=== PATIENT | female | born 1980 | race Caucasian/White ===

== ENCOUNTER → 2017-08-08 15:08 | Outpatient (CLI) | payer MEDICAID | END | disposition home or self-care (01) | LOC: D.MRI 15:08 | DX: S83.231A Complex tear of medial meniscus, current injury, right knee, initial encounter (principal); X58.XXXA Exposure to other specified factors, initial encounter; Y93.89 Activity, other specified; Y92.89 Other specified places as the place of occurrence of the external cause ==

== ENCOUNTER 2017-11-08 05:20 | Day surgery (SDC) | payer MEDICAID ==
[2017-11-07 12:09] LABS: HEMATOCRIT 36.8 % (36.0-48.0); HEMOGLOBIN 12.3 g/dL (12-16); MCH 27.7 pg (26.0-34.0); MCHC 33.4 g/dL (31.0-37.0); MCV 82.9 fL (80.0-100.0); MEAN PLATELET VOLUME 9.6 fL (7.4-10.4); RBC 4.44 10x6/uL (4.00-5.40); RDW 13.5 % (11.5-14.5); WBC 9.9 10x3/uL (4.8-10.8)
[2017-11-07 12:19] LABS: ANION GAP 9.9 mmol/L (8-16); CALCIUM 9.8 mg/dL (8.5-10.1); CARBON DIOXIDE 31.7 mmol/L (21.0-32.0); POTASSIUM - SERUM 3.6 mmol/L (3.5-5.1)
[~2017-11-08] VITALS: Ht 160 cm; Wt 96.6 kg
[~2017-11-08 05:20] MED LIST: ADIPEX-P37.5 M1 PO; AMITRIPTYLINE H50 MG PO; BACLOFEN10 MG PO; CHLORTHALIDONE25 MG PO; HYDROCODON-ACE1 EAC7 PO; IBUPROFEN800 MG PO; K-TAB10 MEQ PO; MOVANTIK25 MG PO; PEPCID20 MG PO; PROZAC20 MG PO; SYNTHROID88 MCG PO
[2017-11-08 06:25] VITALS: BP 126/76; Ht 160 cm; Wt 96.6 kg
[2017-11-08] MEDS ORDERED: DILAUDID2 MG PO (09:06)
--- NOTE | 2017-11-08 14:00 | NUR ---
1100 IV DC WITH CATHER TIP INTACT
--- NOTE | 2017-11-12 09:27 | OP ---
PATIENT NAME: ABDON MONTIEL MEDICAL RECORD: [id number] :76 LOCATION:[facility] ADMISSION DATE: SURGEON: LILA HAN MD DATE OF OPERATION: 11/08/2017 PREOPERATIVE DIAGNOSIS: Partial medial meniscus tear of the left knee. POSTOPERATIVE DIAGNOSIS: Partial medial meniscus tear of the left knee. PROCEDURE: Arthroscopic partial medial meniscectomy of the left knee. SURGEON: Lila Han MD ANESTHESIA: General. INTRAOPERATIVE COMPLICATIONS: None. SUMMARY OF PATHOLOGIC FINDINGS: The patient had a complex tear of the posterior horn of the medial meniscus consistent with preoperative findings SUMMARY IN DETAIL: After obtaining the appropriate preoperative orthopedic surgery consent as well as anesthetic consultation, evaluation and clearance, the patient was brought to the operating room and placed on operating table in supine position. After general laryngeal mask was administered, tourniquet was placed about the proximal aspect of the left lower extremity. Left lower extremity was then prepped and draped in a routine sterile fashion. The leg was elevated and exsanguinated, tourniquet inflated to 350 mmHg. Routine inferolateral portal was established followed by superomedial portal and inferomedial portal. Diagnostic arthroscopy did reveal a complex tear of the posterior horn of medial meniscus. Combination of 3.5 full radius resector in conjunction with an arthroscopic meniscotome was utilized to debride the meniscus back to stable meniscal elements. Having completed this, the knee was insufflated with 30 cc of 0.25% Marcaine with epinephrine and 40 mg Depo-Medrol. Arthroscopy portals were closed in routine interrupted fashion using 4-0 Prolene. Sterile dressings were applied. The patient was awakened, taken to recovery in stable condition. All final needle and sponge counts were correct. TRANSINT:[id number] Voice Confirmation ID: [id number] DOCUMENT ID: [id number] LILA HAN MD at 0927 CC: [id number] DICTATION DATE: 11/08/17 1413 [employer] ATTENDANT: 11/08/17 1457 [facility] [place] [facility] [address] [place] [address]
--- NOTE | 2017-11-12 09:27 | OP ---
PATIENT NAME: ABDON MONTIEL MEDICAL RECORD: [id number] :76 LOCATION:[facility] ADMISSION DATE: SURGEON: LILA HAN MD DATE OF OPERATION: 11/08/2017 PREOPERATIVE DIAGNOSIS: Medial meniscus tear of the right knee. POSTOPERATIVE DIAGNOSIS: Medial meniscus tear of the right knee. PROCEDURE: Arthroscopic partial medial meniscectomy. SURGEON: Lila Han MD ANESTHESIA: General. INTRAOPERATIVE COMPLICATIONS: None. SUMMARY OF PATHOLOGIC FINDINGS: The patient had a complex tear of the posterior horn of the medial meniscus consistent with MRI. OPERATIVE SUMMARY IN DETAIL: After obtaining the appropriate preoperative orthopedic surgery consent as well as anesthetic consultation, evaluation and clearance, the patient was brought to the operating room and placed on the operating table in supine position. After adequate general laryngeal mask airway was administered, tourniquet was placed about the proximal aspect of the right lower extremity. Right lower extremity was then prepped and draped in routine sterile fashion. The leg was elevated and exsanguinated. The tourniquet was inflated to 350 mmHg. Routine inferolateral portal was established, followed by superomedial portal and the inferomedial portal. Diagnostic arthroscopy did reveal the patient had the above findings. Combination of a full-radius resector as well as meniscotome were used to debride the meniscus back to stable meniscal elements and to make a clean smoothen rim. Having completed this, the knee was insufflated with 30 cc of 0.25% Marcaine with epinephrine and 40 mg of Depo-Medrol. Arthroscopy portals were closed in interrupted fashion using 4-0 Prolene. Sterile dressings were applied. The patient was awakened and taken to the recovery room in stable condition. All final needle and sponge counts were correct. TRANSINT:[id number] Voice Confirmation ID: [id number] DOCUMENT ID: [id number] LILA HAN MD at 0927 CC: [id number] DICTATION DATE: 11/08/17902 PROBATION SUPERVISOR: 11/08/17 1427 [facility] 11/08/17 [place] [id number] [place] [address]
== END 2017-11-08 11:30 | disposition home or self-care (01) ==
LOC: D.OPS 05:20 → D.PAN 08:30 → D.OPS 08:30
PROVIDERS: Anesthesiology
DX: S83.231A Complex tear of medial meniscus, current injury, right knee, initial encounter (principal); Z01.812 Encounter for preprocedural laboratory examination

== ENCOUNTER → 2018-03-06 10:35 | Outpatient (CLI) | payer MEDICAID ==
[2017-11-08 06:25] VITALS: BMI 37.8
[~2018-03-06 10:35] MED LIST changes: +CYMBALTA20 MG PO; +DILAUDID2 MG PO; +RITALIN SR20 MG PO; +ROBAXIN-750750 MG PO; +VISTARIL25 MG PO
== END | disposition home or self-care (01) ==
LOC: D.MRI 10:35
DX: M25.561 Pain in right knee (principal)

== ENCOUNTER 2018-04-18 07:20 | Day surgery (SDC) | payer MEDICAID ==
[2018-04-17 09:28] LABS: HEMATOCRIT 40.1 % (36.0-48.0); HEMOGLOBIN 13.5 g/dL (12-16); MCH 28.1 pg (26.0-34.0); MCHC 33.7 g/dL (31.0-37.0); MCV 83.4 fL (80.0-100.0); MEAN PLATELET VOLUME 9.6 fL (7.4-10.4); RBC 4.81 10x6/uL (4.00-5.40); RDW 13.6 % (11.5-14.5); WBC 8.2 10x3/uL (4.8-10.8)
[2018-04-17 10:10] LABS: CALCIUM 9.6 mg/dL (8.5-10.1); CARBON DIOXIDE 31.6 mmol/L (21.0-32.0); CREATININE - SERUM 0.9 mg/dL (0.6-1.3); POTASSIUM - SERUM 3.6 mmol/L (3.5-5.1)
[~2018-04-18] VITALS: Ht 160 cm; Wt 86.2 kg
--- NOTE | ~2018-04-18 | OP ---
PATIENT NAME: ABDON MONTIEL MEDICAL RECORD: [id number] :76 LOCATION:D.[facility] ADMISSION DATE: SURGEON: LILA HAN MD DATE OF OPERATION: 04/18/2018 PREOPERATIVE DIAGNOSES: 1. Medial meniscus tear of the right knee. 2. Subcutaneous nodules of the right lower leg times 2. POSTOPERATIVE DIAGNOSES: 1. Medial meniscus tear of the right knee. 2. Subcutaneous nodules of the right lower leg times 2. PROCEDURE: 1. Arthroscopic partial medial meniscectomy of the right knee. 2. Removal of subcutaneous nodules time 2. SURGEON: Lila Han MD ANESTHESIA: General. INTRAOPERATIVE COMPLICATIONS: None. SUMMARY OF PATHOLOGIC FINDINGS: The patient had what appeared to be small lipomas rather than vascular clots. These were sent to pathology. The patient had a recurrent complex tear of the posterior horn of the medial meniscus consistent with the preoperative MRI and physical examination. 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 One area of the chondromalacia was grade III at max, otherwise it was a mixture of grade II and I combination across the entire strip. This was also treated with gentle chondroplasty of the medial femoral condyle. The lateral compartment was pristine. Very small osteophytes had developed on the inferior pole of the patella. OPERATIVE SUMMARY IN DETAIL: After obtaining the appropriate preoperative orthopedic surgery consent as well as anesthetic consultation, evaluation and clearance, the patient was brought to the operating room and placed on the operating table in supine position. After general laryngeal mask airway was administered, tourniquet was placed about the proximal aspect of the right lower extremity. Right lower extremity was then prepped and draped in routine sterile fashion. The leg was elevated and exsanguinated and the tourniquet was inflated to 350 mmHg. The preoperatively marked areas of the subcutaneous nodule were identified. The nodule was palpated. A small incision was made and a very small pea-sized lipoma was found. The second spot approximately 10 cm distal to this was also incised and again a small lipoma was found. Attention was then turned to the knee arthroscopy. Routine anterior lateral portal was created followed by superomedial portal and anteromedial portal. Diagnostic arthroscopy did reveal the above findings. Combination of a full radius resector as well as a meniscotome were utilized to debride the meniscus back to stable elements. This being her second partial medial meniscectomy still left a fairly decent amount of meniscus posterolaterally of the medial compartment and anteromedially of the medial compartment. The meniscus was taken back with about 2 mm of residual cartilage from approximately the 1 o'clock to the 3:30 position. Having completed this, the lateral compartments were evaluated as were the OPERATIVE REPORT [id number] ABDON MONTIEL patellofemoral joint. The knee was then insufflated with 30 cc of 0.25% Marcaine with 80 mg of Depo-Medrol. Arthroscopy portals were closed in routine interrupted fashion using 4-0 Prolene. The 2 areas where the subcutaneous nodules were taken were also closed with 4-0 Prolene. Sterile dressings were applied. Tourniquet was deflated. The patient was awakened and taken to recovery room in stable condition. All final needle and sponge counts were correct. TRANSINT:[id number] Voice Confirmation ID: [id number] DOCUMENT ID: [id number] EMELY CEBALLOS, LILA LEE at 0802 CC: [id number] DICTATION DATE: 04/18/18925 ROUND CORNER CUTTER OPERATOR: 04/18/18 1159 [facility] 04/18/18 [facility] [address] [place] [address]
[2018-04-18 08:03] VITALS: BP 103/74; Ht 160 cm; Wt 86.2 kg
[2018-04-18] MEDS ORDERED: DILAUDID2 MG PO (09:21)
== END 2018-04-18 11:35 | disposition home or self-care (01) ==
LOC: D.OPS 07:20 → D.PAN 08:35 → D.OPS 09:00 → D.PAN 09:30 → D.OPS 10:00 → D.PAN 10:20 → D.OPS 10:20
PROVIDERS: Anesthesiology
DX: S83.231A Complex tear of medial meniscus, current injury, right knee, initial encounter (principal); D17.23 Benign lipomatous neoplasm of skin and subcutaneous tissue of right leg; Z01.812 Encounter for preprocedural laboratory examination

== ENCOUNTER → 2018-07-18 17:12 | Outpatient (CLI) | payer MEDICAID ==
[2018-04-18 08:03] VITALS: BMI 33.7
== END | disposition home or self-care (01) ==
LOC: D.MRI 17:12
DX: M25.561 Pain in right knee (principal)